=== PATIENT | male | born 1985 | race Caucasian/White ===

== ENCOUNTER 2017-01-24 12:41 | Inpatient (IN) | payer SELFPAY ==
[~2017-01-24] VITALS: Ht 185.4 cm; Wt 97.5 kg
[2017-01-24] MEDS ORDERED: ACETAMINOPHEN 325MG TABLET PO STA (15:16)
[2017-01-24] MEDS ORDERED: SODIUM CHLORIDE 0.9% 1,000 ML IV ONE (15:16)
[2017-01-24] MEDS ORDERED: CEFTRIAXONE 2 G PREMIX 50 ML IV ONE (15:30)
[2017-01-24] MEDS ORDERED: KETOROLAC 30MG/ML VIAL IV ONE (15:30)
[2017-01-24] MEDS ORDERED: VANCOMYCIN 1 G PREMIX 200 ML IV ONE (15:30)
[2017-01-24 15:51] LABS: HEMATOCRIT. 41.7 % (42.0-52.0); HEMOGLOBIN. 14.3 g/dL (14.0-18.0); MEAN CORPUSCULAR HEMOGLOBIN 30.9 pg (28.0-32.0); MEAN PLATELET VOLUME 7.5 fl (7.4-10.4); PLATELET 266 x1000/uL (130-400); RED BLOOD CELL COUNT 4.64 mill/uL (4.7-6.1); RED CELL DISTRIBUTION WIDTH 13.8 % (11.6-14.6)
[2017-01-24 15:56] LABS: CHLORIDE 102 mEq/L (98-107); PROTHROMBIN TIME 10.9 sec
[2017-01-24 16:04] LABS: CARBON DIOXIDE 25 mEq/L (21-32); ETHANOL BLOOD < 10 mg/dL; TROPONIN I < 0.02 ng/mL (0.00-0.04)
[2017-01-24 16:31] LABS: PLATELET ESTIMATE NORMAL
[2017-01-24] MEDS ORDERED: LIDOCAINE HCL 1% 20ML VIAL (Pyxis) INJ MC ONE (17:00)
[2017-01-24] MEDS ORDERED: MORPHINE SULFATE 4 MG/ML CPJ (NOT FOR IM USE) IV ONE ×2 (18:00→20:00)
[2017-01-24] MEDS ORDERED: DEXAMETHASONE 10MG/ML 1ML VIAL IV ONE (18:00)
[2017-01-24] MEDS ORDERED: ONDANSETRON HCL 4MG/2ML VIAL IV ONE ×2 (18:00→20:00)
[2017-01-24] MEDS ORDERED: ACYCLOVIR INJ 500 MG in DEXT 5% WATER 100 ML IV SCH (18:15)
[2017-01-24 18:38] LABS: GLUCOSE CSF 36 mg/dL (41-75)
[2017-01-24 19:35] LABS: CLARITY URINE CLEAR (CLEAR); COLOR URINE YELLOW (YELLOW); GLUCOSE URINE NEGATIVE (NEGATIVE); KETONES URINE 1+ (NEGATIVE); LEUKOCYTE ESTERASE URINE NEGATIVE (NEGATIVE); NITRITE URINE NEGATIVE (NEGATIVE); OCCULT BLOOD URINE NEGATIVE (NEGATIVE); PROTEIN URINE NEGATIVE (NEGATIVE); SPECIFIC GRAVITY URINE 1.015 (1.005-1.030); UROBILINOGEN URINE 0.2 E.U./dL (0.2-1.0)
[2017-01-24 19:57] LABS: *AMPHETAMINES SCREEN URINE NEGATIVE (NEGATIVE); *BARBITURATES SCREEN URINE NEGATIVE (NEGATIVE); *BENZODIAZEPINES SCREEN URINE NEGATIVE (NEGATIVE); *COCAINE SCREEN URINE NEGATIVE (NEGATIVE); CANNABINOID URINE SCREEN PRESUMTIVE POSITIVE (NEGATIVE); METHADONE URINE SCREEN NEGATIVE (NEGATIVE); OPIATES URINE SCREEN PRESUMTIVE POSITIVE (NEGATIVE); PHENCYCLIDINE URINE SCREEN NEGATIVE (NEGATIVE)
[2017-01-25] VITALS: BP_SYST 114; BP_SYST 133; BP_DIAS 67; BP_DIAS 90
[2017-01-25] MEDS ORDERED: ACETAMINOPHEN 325MG TABLET PO PRN (02:00)
[2017-01-25] MEDS: MORPHINE SULFATE 4 MG/ML CPJ (NOT FOR IM USE) IV PRN ×5 (02:36→22:04)
[2017-01-25 04:00] VITALS: BP 123/72
[2017-01-25 08:00] VITALS: BP 140/80
[2017-01-25] MEDS ORDERED: CEFTRIAXONE SODIUM 1 G/VIAL IM ONE (09:00)
[2017-01-25] MEDS: ONDANSETRON HCL 4MG/2ML VIAL IV PRN ×2 (10:55→17:16)
[2017-01-25] MEDS: HYDROCODONE/ACETAMINOPHEN 5/325MG TABLET PO PRN ×3 (10:59→20:30)
[2017-01-25 12:00] VITALS: BP 113/73
[2017-01-25] MEDS ORDERED: VANCOMYCIN 2,000 MG in DEXT 5% WATER 500 ML IV NR (12:00)
[2017-01-25 16:00] VITALS: BP 103/47
[2017-01-25] MEDS ORDERED: CEFTRIAXONE 1 G PREMIX 50 ML IV SCH (18:00)
[2017-01-25 20:00] VITALS: BP 130/85
[2017-01-25] MEDS: VANCOMYCIN 2,000 MG in DEXT 5% WATER 500 ML IV SCH (20:19)
[2017-01-26] VITALS: BP 117/78
[2017-01-26] MEDS: CEFTRIAXONE 2 G in DEXTROSE 5% WATER 50 ML IV SCH ×3 (01:31→22:28)
[2017-01-26] MEDS: MORPHINE SULFATE 4 MG/ML CPJ (NOT FOR IM USE) IV PRN ×4 (02:08→19:06)
[2017-01-26 04:00] VITALS: BP 119/80
[2017-01-26] MEDS: VANCOMYCIN 2,000 MG in DEXT 5% WATER 500 ML IV SCH (05:35)
[2017-01-26] MEDS: ONDANSETRON HCL 4MG/2ML VIAL IV PRN ×2 (06:24→12:44)
[2017-01-26 08:00] VITALS: BP 119/84
[2017-01-26] MEDS: HYDROCODONE/ACETAMINOPHEN 5/325MG TABLET PO PRN ×3 (09:20→22:34)
[2017-01-26 12:00] VITALS: BP 133/81
[2017-01-26 16:00] VITALS: BP 124/72
[2017-01-26 20:00] VITALS: BP 103/64
[2017-01-26] MEDS: VANCOMYCIN 1250MG in DEXTROSE 5% WATER 250ML IV SCH (20:33)
[2017-01-27] VITALS: BP 99/55
[2017-01-27 04:00] VITALS: BP 124/77
[2017-01-27] MEDS: HYDROCODONE/ACETAMINOPHEN 5/325MG TABLET PO PRN ×2 (04:01→08:23)
[2017-01-27] MEDS: VANCOMYCIN 1250MG in DEXTROSE 5% WATER 250ML IV SCH ×3 (04:02→21:40)
[2017-01-27 06:38] LABS: BASOPHILS % 0.4 % (0.0-2.0); EOSINOPHILS % 2.2 % (0.0-5.0); HEMATOCRIT. 38.1 % (42.0-52.0); HEMOGLOBIN. 12.8 g/dL (14.0-18.0); LYMPHOCYTES % 33.3 % (20.0-50.0); MEAN CORPUSCULAR HEMOGLOBIN 30.6 pg (28.0-32.0); MEAN CORPUSCULAR VOLUME 91.1 fL (80.0-94.0); MEAN PLATELET VOLUME 8.2 fl (7.4-10.4); MONOCYTES % 6.7 % (2.0-8.0); NEUTROPHILS % 57.4 % (40.0-76.0); PLATELET 244 x1000/uL (130-400); RED BLOOD CELL COUNT 4.19 mill/uL (4.7-6.1); RED CELL DISTRIBUTION WIDTH 13.6 % (11.6-14.6)
[2017-01-27 07:24] LABS: CHLORIDE 105 mEq/L (98-107)
[2017-01-27 07:40] LABS: CARBON DIOXIDE 23 mEq/L (21-32)
[2017-01-27 08:00] VITALS: BP 119/68
[2017-01-27] MEDS: CEFTRIAXONE 2 G in DEXTROSE 5% WATER 50 ML IV SCH (08:28)
[2017-01-27] MEDS: MORPHINE SULFATE 4 MG/ML CPJ (NOT FOR IM USE) IV PRN ×3 (11:04→22:30)
[2017-01-27 12:00] VITALS: BP 120/70
[2017-01-27] MEDS ORDERED: POTASSIUM CHLORIDE 20MEQ TABLET SR PO NR (12:30)
[2017-01-27 16:00] VITALS: BP 112/56
[2017-01-27 20:00] VITALS: BP 126/66
[2017-01-28] VITALS: BP 115/59
[2017-01-28] MEDS: CEFTRIAXONE 2 G in DEXTROSE 5% WATER 50 ML IV SCH ×2 (00:24→09:50)
[2017-01-28] MEDS: VANCOMYCIN 1250MG in DEXTROSE 5% WATER 250ML IV SCH ×2 (03:41→11:42)
[2017-01-28 04:00] VITALS: BP 115/50
[2017-01-28 04:09] LABS: *HSV 1 DNA PCR Negative (Negative); *HSV 2 DNA PCR Negative (Negative)
[2017-01-28] MEDS: MORPHINE SULFATE 4 MG/ML CPJ (NOT FOR IM USE) IV PRN ×2 (04:46→11:52)
[2017-01-28 08:00] VITALS: BP 114/71
[2017-01-28 12:00] VITALS: BP 115/67
[2017-01-28 12:47] VITALS: BP 115/67
== END 2017-01-28 13:50 | disposition home or self-care (01) | DRG 50 ==
LOC: ER 15:24 → 6EST 18:16 → EDBEDREQSVC 18:17 → EDBEDREQTM 18:17 → EDBEDREQ 18:17 → ENRESERV 21:19
PROVIDERS: ADMIT Hospitalist; ATTEND Hospitalist
PROC: 009U3ZX Drainage of Spinal Canal, Percutaneous Approach, Diagnostic (ICD-10-PCS; principal; 2017-01-24)
DX: G03.9 Meningitis, unspecified (principal); F12.90 Cannabis use, unspecified, uncomplicated; R51 Headache; Z86.61 Personal history of infections of the central nervous system; Z82.49 Family history of ischemic heart disease and other diseases of the circulatory system
CPT/HCPCS: 36415; 70450; 71010; 80053; 80202; 80305; 81003; 82945; 83605; 84157; 84484; 85025; 85610; 86592; 87040; 87070; 87086; 87116; 87205; 87210; 87529; 87899; 89050; 93005; 96361; 96365; 96367; 96375; 96376; 99285; G0482; J0133; J0696; J1100; J1885; J2270; J2405; J3370; J3490; J7030; J7040; J7060